=== PATIENT | male | born 1995 | race Asian ===

== ENCOUNTER 2017-05-07 07:30 | Emergency (ER) | payer OTHER ==
[~2017-05-07] VITALS: Ht 157.5 cm; Wt 53.5 kg
== END 2017-05-07 07:58 | disposition home or self-care (01) ==
LOC: ED 07:30
DX: K08.89 Other specified disorders of teeth and supporting structures (principal)

== ENCOUNTER 2019-03-30 12:21 | Emergency (ER) | payer OTHER ==
[~2019-03-30] VITALS: Ht 160 cm; Wt 50.8 kg
[2019-03-30 14:39] VITALS: BP 95/55; TEMP 98.2
== END 2019-03-30 14:39 | disposition home or self-care (01) ==
LOC: ED 12:21
DX: Z20.2 Contact with and (suspected) exposure to infections with a predominantly sexual mode of transmission (principal)
CPT/HCPCS: 81000; 87490; 87590; 99282

== ENCOUNTER 2019-10-23 22:59 | Emergency (ER) | payer OTHER ==
[~2019-10-23] VITALS: Ht 160 cm; Wt 54.9 kg
[2019-10-23 23:19] VITALS: TEMP 98.4
[2019-10-24 00:10] VITALS: BP 118/83
== END 2019-10-24 00:15 | disposition home or self-care (01) ==
LOC: ED 22:59
PROC: 0HQ0XZZ Repair Scalp Skin, External Approach (ICD-10-PCS; principal; 2019-10-23)
DX: S01.01XA Laceration without foreign body of scalp, initial encounter (principal); W17.89XA Other fall from one level to another, initial encounter
CPT/HCPCS: 99283